=== PATIENT | male | born 1985 | race Caucasian/White ===

== ENCOUNTER 2024-10-27 08:15 | Outpatient (CLI) | payer OTHER, SELFPAY ==
--- NOTE | ~2024-10-27 | CT_ITS ---
EXAMINATION: CT sinus wo con DATE: 10/27/2024 08:31 INDICATION: Deviated nasal septum TECHNIQUE: Computed tomography (CT) of the paranasal sinuses was performed without intravenous contra st. The dose-length product was 380.38 mGy-cm. Automated exposure control and iterative reconstructio n technique were employed. COMPARISON: None FINDINGS: There is a 3.1 cm mucous retention cyst of the left sphenoid sinus. Leftward nasal septal d eviation anteriorly and rightward nasal septal deviation posteriorly.. There is mucosal thickening of the maxillary, ethmoid and frontal sinuses. Ostiomeatal units are patent. Mastoids are pneumatized. IMPRESSION: 1. Moderate sinus disease. 2: Mucous retention cyst measuring 3.1 cm and the left sphenoid sinus. Reviewed, dictated and finalized at location A.
== END 2024-10-27 08:16 | disposition home or self-care (01) ==
PROVIDERS: PCP Otolaryngology Otolaryngology/Facial Plastic Surgery; Visit Provider Otolaryngology Otolaryngology/Facial Plastic Surgery
DX: J34.2 Deviated nasal septum (principal); J32.2 Chronic ethmoidal sinusitis; J34.3 Hypertrophy of nasal turbinates; J34.1 Cyst and mucocele of nose and nasal sinus
CPT/HCPCS: 70486

== ENCOUNTER 2024-12-31 00:17 | Day surgery (SDC) | payer OTHER, SELFPAY ==
[2024-12-27 11:14] VITALS: BMI 31.1
--- NOTE | 2024-12-27 11:22 | PC.NURSE ---
Report to the Outpatient Waiting Room, entrance under the green pavilion located off [facility], at time _0600_ on date _[id number]_. Planned Procedure Time: _0730_.? Time changes happen often and if your time is changed the preop area will call you the afternoon before. - You and your visitor will be asked to self-screen and do not enter if you have any COVID symptoms. Please call surgeon if you need to reschedule. - A mask is optional within the hospital at this time. Patients may have clear liquids (water, carbonated beverages, clear teas, apple juice) until 3 hours prior to surgery with a maximum of 20 ounces. - No food from midnight until time of surgery and no smoking, or chewing tobacco (or any form of nicotine). No chewing gum, candy or mints. Take only the following medications with a SIP of water on the morning of surgery: ___None____ DO NOT STOP ANY OF YOUR OTHER PRESCRIPTION MEDICATIONS PRIOR TO SURGERY EXCEPT THE FOLLOWING Hold all vitamins and supplements for 3 days per anesthesiologist. Please bring list with names and doses of the vitamins you take. Medications to discontinue per physician Date to take last sede___[id number]___ Please no make-up, nail faroese, hairspray, perfume, deodorant, or body powder the day of surgery.? No jewelry (including any body piercings) or valuables the day of surgery, leave them at home.? Please take a shower or bath the night before, or the morning of, surgery with an antibacterial soap.? Wear comfortable, loose fitting clothing.? - Jewelry must be removed prior to entering the operating room.? Rings and piercings that are not removed may be cut off. - The hospital will not accept responsibility for valuables.? - Please leave all valuables, including medications, at home the day of surgery. If you are going home after surgery, a licensed yard truck driver must drive you home.? - NO public transportation without another adult if you receive anesthesia. - We recommend that an adult stay with you for 24 hours following discharge. - We also recommend that you do not drive, make important decision, drink alcoholic beverages, or take any drugs that were not prescribed by your health care provider for at least 24 hours after your discharge time. Follow any additional instructions given to you from your surgeon. Telephone instructions given to __Brad___and asked if any additional questions and then verbalized understanding. Patient advised to call surgeon office or pre surgery nurse liaison [phone] if any additional questions.
[2024-12-31] VITALS (13 sets, daily range): BP systolic 102–146; BP diastolic 56–89; PULSE 56–91; RESP 10–18; TEMP 36.1–36.4; O2SAT 94–100
--- OUTSIDE RECORDS SUMMARY | 2024-12-31 00:19 | XMS_ITS | Clinical Summary ---
Author Organization [facility] Address [address] [place] [address] Phone Care Team Providers Care Calender Supervisor Name Role Phone Provider, None Primary Care Provider Unavailabl e Allergies No known active allergies Medications albuterol (PROVENTIL HFA, VENTOLIN HFA) 108 (90 Base) MCG/ACT Aerosol SolutionIndicati ons:Acute bronchitis, unspecified organism take 2 Puffs by inhalation every 6 hours as needed for Wheezing. 8.5 g 7 Active Additional Information Patient not taking.Reported on 04/21/2017 ondansetron (ZOFRAN) 4 MG Tablet Take 1 Tab by mouth every 8 hours as needed for Nausea. 15 Tab 7 Active escitalopram (LEXAPRO) 10 MG Tablet TAKE 1 TABLET BY MOUTH DAILY 90 Tab 8 Active Additional Information Patient not taking.Reported on 12/05/2022 Active Problems Problem Noted Date Diagnosed Date Intermittent explosive disorder 01/07/2023 Family History Relation Name Status Comments Daughter 1 (9) Alive Daughter 2 (7) Alive Father Alive Mother Alive Sister (43) Alive Social History Tobacco Use Types Packs/Day Years Used Date Smoking Tobacco: Every Day Cigarettes Smokeless Tobacco: Never Tobacco Cessation:Ready to Q uit: Not Asked; Counseling Given: Not Answered Alcohol Use Standard Drinks/Week Comments Yes 0 (1 standard drink = 0.6 oz pur e alcohol) about one drink per week Sexually Active Control Partners Comments Yes None Female PAtient's identifies as asexual. They briefly had an open marriage. Sex and Gender Information Value Date Recorded Sex Assigned at Not on file Legal Sex Male 9:23 PM CDT Gender Identity Not on file Sexual Orientation Not on file Last Filed Vital Signs Vital Sign Reading Time Taken Comments Blood Pressure 102/62 04/21/2017 2:47 PM CDT Pulse 95 04/21/2017 2:47 PM CDT Temperature 37.8 C (100 F) 04/21/2017 2:47 PM CDT Respiratory Rate 18 04/21/2017 2:47 PM CDT Oxygen Saturation 98% 04/21/2017 2:47 PM CDT Inhaled Oxygen Concentration - - Weight 93 kg (205 lb) 04/21/2017 2:47 PM CDT Height 177.8 cm (5' 10) 04/21/2017 2:47 PM CDT Body Mass Index 29.41 04/21/2017 2:47 PM CDT Plan of Treatment Health Maintenance Due Date Last Done Comments Hepatitis C Virus (HCV) Screening 1985 TdaP Immunization 1985 Hepatitis B Immunization (1 of 3 - 19+ 3-dose series) 2002 SARS-COV-2 Immunization ( - 2023- season) 2024 Influenza Immunization (Seas on Ended) 2025 05/05/2021 Respiratory Syncytial Virus (RSV) Immunization (Adult) (1 - 1-dose 75+ series) 2058 Human Papillomavirus (HPV) Immunization Aged Out No longer eligible b ased on patient's age to complete this topic Meningococcal Immunization (ACWY) Aged Out No longer eligible based on patient's age to complete this topic Pneumococcal Immunization Combined Aged Out No longer eligible based on patient's age to complete this topic Rotavirus Immunization Aged Out No lo nger eligible based on patient's age to complete this topic Goals Goal Patient Goal Type Associated Problems Recent Progress Patient-Stated? Author ANXIETY Anxiety On track(2022 8:40 AM FOREPART RASPER) No Tristen Bentley PSYD Note: Goal/Objective: Decrease symptoms of anxiety and depression. Anticipated Time Frame for Goal Completion: 8 weeks Goal Reviewed with: patient Readiness to change: Thinking about making a change Department associated with goal: [facility] Steps to achieve goal: will attend counseling/psychotherapy sessions at least once monthly at least 6 sessions , utilizing individual and/or group sessions to express thoughts and feelings. to identify, verbalize and process at least three contributing factors/triggers to anxiety and depression. T o identify at least two lifestyle changes/habits. to put into action, at least one lifestyle change/habit, for one month or longer, to reduce and or cope with anxiety and depression. Behavioral Health Behavioral Health On track(2022 8:40 AM FOREPART RASPER) Yes Tristen Bentley PSYD Note: Marcin wishes to learn techniques to control his anger and to also learn the sources of his current anger. He also wishes to address his reckless spending on videogames. Insurance on file [facility] Care Teams Calender Supervisor Relationship Specialty Start Date End Date Provider, None [place] PCP - General 01/10/21
--- OUTSIDE RECORDS SUMMARY | 2024-12-31 00:19 | XMS_ITS | Referral Summary ---
Author Organization [address] Address [address] [place] [id number] Care Team Providers Care Automotive Generator Repairer Name Role Phone Arian Best MD Primary Care Provider + Allergies No known active allergies Medications azithromycin (ZITHROMAX) 250 mg tabletIndication s:Strep pharyngitis Take 2 tablets the first day, then 1 tablet daily for 4 days. 6 tablet 07/07/2024 Active Active Problems Problem Noted Date Diagnosed Date Seasonal allergic rhinitis due to pollen 023 Assessment & Plan (04/07/2023 3:20 PM CDT): Nasal saline spray (Simply saline, Little Remedies, [place], [place]) 2 second sprays or 2 squeezes into each nostril while looking down over the sink, do not need to sniff in. Followed by Flonase 2 sprays into each nostril while looking down over the sink, do not sniff in or blow nose after use for at least 30 minutes daily Blood allergy testing Contusion of right foot 11/11/2022 Forehead abrasion, initial encounter 11/11/2022 Syncope and collapse 11/11/2022 Social History Tobacco Use Types Packs/Day Years Used Date Smoking Tobacco: Every Day Smokeless Tobacco: Never Tobacco Cessation:Ready to Q uit: Not Asked; Counseling Given: Not Answered Alcohol Use Standard Drinks/Week Comments Yes 0 (1 standard drink = 0.6 oz pur e alcohol) Personal Safety Answer Date Recorded Have you ever been in or are you currently in a harmful physical or emotional relationship or is someone making you feel afraid or unsafe? Denies 11/11/2022 Sex and Gender Information Value Date Recorded Sex Assigned at Not on file Legal Sex Male 12:34 AM COORDINATOR OF PLACEMENT Gender Identity Male 04/07/2023 10:17 AM CDT Sexual Orientation Bisexual 04/07/2023 10 :17 AM CDT Last Filed Vital Signs Vital Sign Reading Time Taken Comments Blood Pressure 120/80 07/07/2024 4:44 PM COORDINATOR OF PLACEMENT Pulse 78 07/07/2024 4:44 PM COORDINATOR OF PLACEMENT Temperature 36.8 C (98.2 F) 07/07/2024 4:44 PM COORDINATOR OF PLACEMENT Respiratory Rate 20 07/07/2024 4:44 PM COORDINATOR OF PLACEMENT Oxygen Saturation 98% 07/07/2024 4:44 PM COORDINATOR OF PLACEMENT Inhaled Oxygen Concentration - - Weight 97.5 kg (215 lb) 07/07/2024 4:44 PM COORDINATOR OF PLACEMENT Height 175.3 cm (5' 9) 07/07/2024 4:44 PM COORDINATOR OF PLACEMENT Body Mass Index 31.75 07/07/2024 4:44 PM COORDINATOR OF PLACEMENT Plan of Treatment Not on file Insurance [facility]PPO Address: [facility] [address] [place] [address] [facility]/PPO [place] [address] Care Teams Automotive Generator Repairer Relationship Specialty Start Date End Date Arian Best MD [address] [place] [address] PCP - General Internal Medicine 11/13/22
--- OUTSIDE RECORDS SUMMARY | 2024-12-31 00:19 | XMS_ITS | Clinical Summary ---
Author Organization [address] Address [address] [place] [id number] Care Team Providers Care Television Antenna Installer Name Role Phone Arian Best MD Primary [...] Nasal saline spray (Simply saline, Little Remedies, [place], [place]) 2 second sprays or 2 squeezes into [...] initial encounter 11/11/2022 Syncope and collapse 11/11/2022 Family History Medical History Relation Name Comments Cancer Other Family history of Cancer; Relation Name Status Comments Other Social History Tobacco Use Types Packs/Day Years [...] on file Legal Sex Male 12:34 AM DISPATCH CLERK Gender Identity Male 04/07/2023 10:17 AM CDT Sexual Orientation Bisexual 04/07/2023 10 :17 AM CDT Obstetrics History Last Filed Vital Signs Vital Sign Reading Time Taken Comments Blood Pressure 120/80 07/07/2024 4:44 PM DISPATCH CLERK Pulse 78 07/07/2024 4:44 PM DISPATCH CLERK Temperature 36.8 C (98.2 F) 07/07/2024 4:44 PM DISPATCH CLERK Respiratory Rate 20 07/07/2024 4:44 PM DISPATCH CLERK Oxygen Saturation 98% 07/07/2024 4:44 PM DISPATCH CLERK Inhaled Oxygen Concentration - - Weight 97.5 kg (215 lb) 07/07/2024 4:44 PM DISPATCH CLERK Height 175.3 cm (5' 9) 07/07/2024 4:44 PM DISPATCH CLERK Body Mass Index 31.75 07/07/2024 4:44 PM DISPATCH CLERK Plan of Treatment Health Maintenance Due Date Last Done Comments Depression Screening 1983 Hepatitis C Screening 1983 DTaP/Tdap/Td Vaccine (1 - Tdap) 1994 Varicella Vaccines (1 of 2 - 13+ 2-dose series) 1996 Hepatitis B Screening 2001 Regular Well Visit/Exam 18-64 2001 Pneumococcal vaccine <65 (1 of 2 - PCV) 2002 Influenza Vaccine (Season Ended) 2025 HPV Vaccines Aged Out No longer eligi ble based on patient's age to complete this topic Insurance [facility] [place] [id number] Care Teams Television Antenna Installer Relationship Specialty Start Date End Date Arian Best MD [address] [place] [address] PCP - General Internal Medicine 11/13/22
--- NOTE | 2024-12-31 05:53 | ECG_ITS ---
Test Date: 2024-12-31 06:50:12 Measurements Intervals [place] Rate: 57 P: 40 OK: 155 QRS: -1 QRSD: 97 T: 42 QT: 403 QTc: 395 Interpretive Statements SINUS BRADYCARDIA INCOMPLETE RIGHT BUNDLE BRANCH BLOCK LOW QRS VOLTAGE IN PRECORDIAL LEADS BORDERLINE ECG No previous ECG available for comparison Electronically Signed On 12-31-2024 08:37:25 CDT by Jeffry Reid D.O.
[2024-12-31] MEDS: LACTATED RINGERS 1,000 ML 30 ML IV CONT ×2 (06:15→11:18)
[2024-12-31] MEDS: ACETAMINOPHEN 500 MG TABLET 1000 MG PO (06:30)
[2024-12-31] MEDS: OXYMETAZOLINE HCL 0.05% NAS 15 ML BTL (*BKC) 2 SPRAY NASAL ×3 (06:30→06:40)
--- NOTE | 2024-12-31 06:32 | WPDANESEPPF ---
Anes - Initial Pre Proc Eval Procedure: Operation Date: 12/31/24 07:30 Proposed Procedures p Septoplasty, - Ciaran Mcclelland MD s Image Guided Bilateral Submucous Resection of Inferior Turbinates, Bilateral Complete Ethmoidectomy, Left Sphenoidotomy - Ciaran Mcclelland MD Date/Time: 12/31/24 06:32 Surgeon: Ciaran Mcclelland MD Pre Op Diagnosis: deviated septum,ethmoid sinus, hypertr nasal turb Patient Data Age: 39 Gender: M Height: 1.75 m Weight: 95.5 kg Allergies Allergy/AdvReac Type Severity Reaction Status Date / Time No Known Allergies Allergy Unverified 12/27/24 11:13 Home Medications ?Medication ?Instructions ?Recorded ?Confirmed ?Type No Home Medications 12/27/24 12/27/24 History Patient hx anesthesia problems: none Family hx anesthesia problems: none Results Review: All pre-operative results and documents have been reviewed as part of the pre-operative evaluation. [facility] Past Medical History Medical History Chronic sphenoidal sinusitis Chronic frontal sinusitis Chronic maxillary sinusitis Decreased sense of smell Nasal congestion Hypertrophy of nasal turbinates Chronic ethmoidal sinusitis Deviated nasal septum Social History Social History Social History: Caffeine- tea Smoking status: Unknown if ever smoked Tobacco type: cigarettes and e-cigarettes/vaping Alcohol intake: current Alcohol use details: rarely Substance use: current Substance use type: marijuana Other substance usage details: Gummies weekends. Anes - Eval Final PreProcedure Day of Procedure 12/31/24 06:32 Patient weight: obese Heart: regular rate and rhythm Lungs: clear to auscultation Airway: Mallampati scale class II Neurological: alert and oriented Last oral intake: >/= 8 hours ASA classification: II Emergent: no Anesthetic plan: proceed Anesthesia type and monitoring: general ETT and standard monitoring Results Review: All pre-operative results and documents have been reviewed as part of the pre-operative evaluation. Informed Consent: The patient's anesthetic plan and its attendant risks and benefits were discussed with the patient/family/POA. Questions were solicited and answers provided to the satisfaction of the patient/family/POA.
--- NOTE | 2024-12-31 07:07 | PM.IMHP ---
H&P: HPI History of Present Illness Date/Time: 12/31/24 07:07 Chief Complaint: chronic sinusitis [facility] Past Medical History Medical History Chronic sphenoidal sinusitis Chronic frontal sinusitis Chronic maxillary sinusitis Decreased sense of smell Nasal congestion Hypertrophy of nasal turbinates Chronic ethmoidal sinusitis Deviated nasal septum Social History Social History Social History: Caffeine- tea Smoking status: Unknown if ever smoked Tobacco type: cigarettes and e-cigarettes/vaping Alcohol intake: current Alcohol use details: rarely Substance use: current Substance use type: marijuana Other substance usage details: Gummies weekends. Meds Home Medications and Allergies Home Medications ?Medication ?Instructions ?Recorded ?Confirmed ?Type No Home Medications 12/27/24 12/27/24 History Allergies Allergy/AdvReac Type Severity Reaction Status Date / Time No Known Allergies Allergy Unverified 12/31/24 06:52 Vital Signs Vital Signs - 24 hr 12/31/24 06:45 Temperature 36.4 C Pulse Rate 56 L Respiratory Rate 16 Blood Pressure 105/60 Pulse Oximetry 100 Oxygen Delivery Room Air Assessment and Plan Assessment and plan (1) Deviated nasal septum: Code(s): J34.2 - Deviated nasal septum Status: Acute (2) Chronic ethmoidal sinusitis: Code(s): J32.2 - Chronic ethmoidal sinusitis Status: Acute (3) Hypertrophy of nasal turbinates: Code(s): J34.3 - Hypertrophy of nasal turbinates Status: Acute (4) Nasal congestion: Code(s): R09.81 - Nasal congestion Status: Acute (5) Chronic maxillary sinusitis: Code(s): J32.0 - Chronic maxillary sinusitis Status: Acute (6) Chronic sphenoidal sinusitis: Code(s): J32.3 - Chronic sphenoidal sinusitis Status: Acute Plan 39-year-old male with deviated nasal septum hypertrophy of nasal turbinates and chronic nasal congestion, decreased sense of smell, and chronic sinusitis 1. CT scan result was discussed with the patient. 2. discussion about options including continuing medical treatment versus undergoing surgery was discussed thoroughly with the patient -Risk of septoplasty procedures were discussed with the patient which include but not limited to; Bleeding, infection, septal perforation, saddle nose deformity, intranasal scarring -Risks for sinus surgery: injury to the skull base, injury to the eye, need for further surgery. Risk of recurrent disease is also discussed. All the questions were answered to the best of my ability and the patient wished to proceed. The procedures will be scheduled in a timely fashion. 3. Patient will think about it and will call me to schedule surgery if he prefers to do that option. 4. Meanwhile we recommend continuing topical nasal sprays including fluticasone and azelastine nasal sprays.
--- NOTE | 2024-12-31 07:07 | WPDHPUPDATE1 ---
History and Physical Update Update Date/Time: 12/31/24 07:07 History and Physical has been reviewed, including an updated exam of the patient. There are NO changes in the patient's condition. Risks, benefits, and alternatives have been discussed and questions answered. Patient agrees to proceed with procedure.
[2024-12-31] MEDS: ceFAZolin 2 GM/D5W 50 ML 2 GM/50 ML BAG IVPB (07:21)
[2024-12-31] MEDS: COCAINE HCL (*CRX) 4% TOP SOLN 4 ML VIAL 1 APPLIC TOPICAL (08:41)
[2024-12-31] MEDS: LIDO 1%/EPINEPHRINE 1:100,000 20 ML VIAL INFILTRATE (08:43)
[2024-12-31] MEDS: ceFAZolin SODIUM 1 GM VIAL (09:30)
[2024-12-31] MEDS: TRIAMCINOLONE ACET INJ 40 MG/ML VIAL XX (09:40)
--- NOTE | 2024-12-31 09:58 | S_PTH ---
PATIENT: Timo Hernandez LOC: [facility] U#:[id number] AGE/SX: 39/M ROOM: RE12/31/[address]: Ciaran Mcclelland MD : 1985 BED: DIS: 12/31/2024 SPEC #: [id number] RECD: 12/31/24 13:06 STATUS: [place] REQ #: [id number] AIDA: 12/31/24 09:[address]: Ciaran Mcclelland DEPT: [facility] Surgical RECD BY: Jayna Villasenor ENTERED: 12/31/24 13:07 SP TYPE: Surgical OTHR DR: Arian BestMD Tissues: A - Sinus Contents Procedures: Hematoxylin and Eosin Stain Gross and Microscopic Level 4
[2024-12-31] MEDS: MUPIROCIN 2% OINT 22 GM TUBE 1 APPLIC EACH NARE (10:56)
--- NOTE | 2024-12-31 11:16 | P.OP_ITS ---
Procedure Note - Detailed Date of Procedure 12/31/24 Pre-op Diagnosis Deviated nasal septum,hypertrophy of nasal turbinates,chronic sinusitis Post-op Diagnosis Same Procedure Performed ? Endoscopic septoplasty ? Nasal endoscopy with ethmoidectomy, total (anterior and posterior) bilaterally. ? Nasal endoscopy with sphenoidotomy left . ? Bilateral inferior turbinate reduction (intramural (submucosal) ablation of the inferior turbinate.) Surgeon Ciaran Mcclelland MD Anesthesia General Description of Procedure DESCRIPTION OF PROCEDURE: The patient was seen in the preoperative area, informed consent was checked and confirmed. The patient was taken to the operating room, sedated and placed under general anesthesia with an endotracheal tube . Eyes were taped and were prepped and draped in the usual sterile fashion. The nose was examined, and the right anterior septum was injected with 1% lidocaine with 1:100,000 epinephrine. Lobo incision was made and a mucoperichondrial flap was elevated to expose the quadrangular cartilage and bony septum. Incision was then made anteriorly on the quadrangular cartilage to elevate the contralateral mucoperichondrial flap. thin stirp of cartilage was resected form the inferior nasal septum. We resected the deviated bony septum with a Gilman-Bell and a pituitary forceps. After adequate resection of the posterior-inferior bony septum, the mucoperichondrial Flap was laid back in anatomic position.the incision was closed with two 04 Vicryl sutures We proceeded to the endoscopic sinus procedure starting on the right side. The agger nasi area was injected with 1% lidocaine with 1:100,000 epinephrine. The body of the middle turbinate was injected with 1% lidocaine with 1:100,000 epinephrine. The middle turbinate was gently medialized and the uncinectomy was performed with a pediatric Mccall backbiter and the uncinectomy was completed with a shaver from the inferior-posterior attachment to the superior anterior attachment. The ethmoidectomy was performed by shaving the anterior ethmoid bulla and care was taken to protect the skull base in the lamina papyracea. Maxillary antrum was re-examined with a 30-degree scope. A ball probe was passed into the antrum and was further widened with a backbiter in the anterior- inferior aspect.right posterior ethmoidectomy was done through the inferio- medial quadrant of basal lamella ,posterior ethmoid cells were removed from anterior to posterior direction and from inferior to superior taking care to preserve skull base and lamina papyracea.then ,lateralization of the middle turbinate and shaving,opening of the posterior corridor and shaving the posterior part of the middle turbinate to widen the superior meatus and i proceeded to the left side : The agger nasi area was injected with 1% lidocaine with 1:100,000 epinephrine. The body of the middle turbinate was injected with 1% lidocaine with 1:100,000 epinephrine. The middle turbinate was gently medialized and the uncinectomy was performed with a pediatric Mccall backbiter and the uncinectomy was completed with a shaver from the inferior-posterior attachment to the superior anterior attachment. The ethmoidectomy was performed by shaving the anterior ethmoid bulla and care was taken to protect the skull base in the lamina papyracea. Maxillary antrum was re-examined with a 30-degree scope. A ball probe was passed into the antrum and was further widened with a backbiter in the anterior-inferior aspect.left posterior ethmoidectomy was done through the inferio-medial quadrant of basal lamella ,posterior ethmoid cells were removed from anterior to posterior direction and from inferior to superior taking care to preserve skull base and lamina papyracea.then ,lateralization of the middle turbinate and shaving,opening of the posterior corridor and shaving the posterior part of the middle turbinate to widen the superior meatus left side sphenoidotomy was done by identifying the left sphenoid ostium ,the lower third of the superior turbinate was resected to expose the left sphenoid ostium,the ostium was enlarged inferiorly and laterally ,the left sphenoid cyst was marsupialized and tissue biopsy was sent for pathology We proceeded with submucosal inferior turbinate reduction, starting on the right side, a stab incision was made anterior mucosa of inferior turbinate. Submucosal pocket was created along the length of the inferior turbinate and the microdebrider blade 2mm thick was introduced anteriorly and into the whole submucosal pocket. Microdebrider was then used to remove the hypertrophied bony parts of anterior turbinate head and soft tissue with the outer layer intact. The residual inferior turbinate was then out fractured using Boies elevator. We proceeded to the left side. A stab incision was made on the anterior mucosa of inferior turbinate. Submucosal pocket was created along the length of the inferior turbinate and the microdebrider blade 2 mm thick was introduced anteriorly and into the whole submucosal pocket. Microdebrider was then used to remove the hypertrophied bony parts of anterior turbinate head and soft tissue with the outer layer intact. The residual inferior turbinate was then out fractured using Boies elevator. Pledgets were removed from ethmoid cavities, PosiSep X BAM Hemostat Dressing sponges were placed in ethmoid cavities bilaterally and infiltrated with a mixture of kenalog and cefazolin. The nose was then suctioned clean and at this point the care of the patient was then transferred to the anesthesiologist where the patient emerged from general anesthesia without complication. 1 Merocel nasal packing was placed in each nostril Estimated Blood Loss 10 (ml) Packing Yes (1 Merocel non-absorbable nasal packing in each nostril ,taped to the face) Pathology Yes (left sphenoid contents) Complications No immediate complications Condition Stable Disposition PACU [facility] Billing Surgery - Charge Forward: Surgery Billing
[2024-12-31] MEDS: oxyCODONE HCL (*CRX) 5 MG TAB IR PO (13:48)
== END 2024-12-31 14:36 | disposition home or self-care (01) ==
PROVIDERS: PCP Internal Medicine; Visit Provider Otolaryngology Otolaryngology/Facial Plastic Surgery
PROC: (CPT 30520; principal; 2024-12-31 07:30)
PROC: (CPT 31257; 2024-12-31 07:30)
DX: J32.2 Chronic ethmoidal sinusitis (principal); J32.0 Chronic maxillary sinusitis; J32.3 Chronic sphenoidal sinusitis; J34.2 Deviated nasal septum; J34.3 Hypertrophy of nasal turbinates; J32.9 Chronic sinusitis, unspecified; F12.90 Cannabis use, unspecified, uncomplicated; R09.81 Nasal congestion; E66.9 Obesity, unspecified; Z68.31 Body mass index [BMI] 31.0-31.9, adult
CPT/HCPCS: 31257; 30140; 61782; 88305; 93005; A9270; J0690; J1100; J1171; J2003; J2004; J2250; J2704; J3010; J3301; J7050; J7120